=== PATIENT | female | born 1970 | race Caucasian/White ===

== ENCOUNTER 2024-10-11 08:50 | Outpatient (AMB) | payer MEDICARE, SELFPAY ==
--- NOTE | 2024-10-11 08:55 | HO.SPINEOV ---
Vital Signs 10/11/24 09:04 Height 5 ft 7 in Weight 155 lb BMI 24.3 Intake Visit Reasons: left SI pain Intake Note: Ms. Garcia is here today c/o Left sided SI Pain that radiates down to the left leg. 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 She is a very nice 54-year-old female presents for evaluation of pain over the SI joint region which has been going on for a year or more. She has a history of a bony lesion on the left side of her pelvis that was treated with bone cement in 2019, that seemed to help pain in the left side of the pelvis quite a bit. The pain that started a year ago his distinctly different from that pain, localizes itself well over the SI joint area. She was seeing her chiropractor who was working on her and he recommended she see someone else because he did not feel as though this treatments were continuing to see improvement. The pain does bother her when she is standing for any length of time, sitting for any length of time, as well as at night when she is trying to sleep. The patient has a number of different painful conditions that limit her sleeping, but she does notice that the SI joint pain disturbs her enough that it will wake her up, sometimes she has to get up and move around. She has tried an SI joint belt. It works but it is somewhat cumbersome. She has tried ibuprofen and that does not really help much at all. No dedicated physical therapy yet. She did undergo an SI joint injection at your office. She reported about 40% improvement in the pain for few weeks and then the symptoms came back. She is going to schedule an upcoming injection sometime soon to repeat this. She has evaluated by another office for possible SI joint fusion but given the bone cement location in the pelvis, they deferred. She was sent today to see us if there is an option for possibly putting in the Transfasten through a posterior approach. PMH: History of breast cancer, status post mastectomy, with 2 subsequent surgeries on her breast due to a failed reconstructive surgery. She also had adrenal cancer in 2022 with resection of the adrenal lesion in his in remission. 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 She has severe arthritis on her great toe. Status post hysterectomy, carpal tunnel and a urethral widening. Social hx: She has not smoke, drink or use any recreational drugs, she is a part-time online teacher. Medications: Exemestane, Veozah, monthly Lupron injections, valacyclovir, lorazepam and she is on a temporary prednisone taper for arthritis in her left toe. Allergies: Gabapentin, indomethacin and duloxetine Physical exam: Awake alert oriented, uncomfortable standing up, pain with walking in the hallway over the SI joint area. Positive finger Valery sign, positive NATALIE testing on the left side. Localize compression of the pelvis laterally did not generate any significant pain. Strength and reflexes are normal. Imaging review: There is pelvic MRI and abdominal CT showing the above-mentioned bone cement starting high on the iliac crest tracking superiorly and laterally. SI joint anatomy itself looks unremarkable. Impression: 54-year-old female with left SI joint pain, did have a 40% pain improvement response to your injection. She has been turned down from another facility for SI joint fusion because of bone cement in the iliac crest which would limit the lateral approach. The patient is anatomically a bit more of a challenge because of the bone cement. I am going to review the images with Dr. Mariee, see if he thinks there is enough of a track going down distally in the joint where there is less of a chance of running into the cement. She has had the pain for the last year and has trialed conservative management as above. As you know, typically before considering fusion, Dr. Mariee likes to see to serial injections yielding significant improvement in the pain. As we also note, getting this approved through her insurance, they will also like to see multiple injections with marked improvement in the symptoms. The patient is going to contact your office about a follow up injection, and I will call the patient once I have a chance to review everything with Dr. Mariee. Thank you for allowing us to care for your patient. The total time spent with this visit with this patient was 45 minutes reviewing history, physical exam, pelvic imaging review, and implementation of treatment plan or further diagnostic testing Rik Mariee MD,PhD [facility] Coding Level of Care Code New Pt Level 4 (34737) Diagnoses Chronic SI joint pain M53.3; G89.29
[2024-10-11 09:04] VITALS: BMI 24.3
--- OUTSIDE RECORDS SUMMARY | 2024-10-11 09:07 | XMS_ITS | Patient Health Record ---
Author Organization [facility] Address [address] [place] [address] Care Team Providers Care Wood Inspector Name Role Phone Antonella Antoine Primary Care Provider Danielle Garcia Unavailable [phone] Allergies Allergen (clinical drug ingredient) Drug/Non Drug Allergy documented on EMR Reaction Allergy Type Onset Date Status valacyclovir valACYclovir facial and tongue swelling Drug Allergy Active Reason For Referral No Information Medications Medication SIG (Take, Route, Fr equency, Duration) Notes Start Date End Date Status predniSONE 5 MG 1 tablet 4 times a d ay for 3 days, 1 tablet 3 times a day for 3 days, 1 tablet 2 times a day for 3 days, 1 tablet once a day for 3 days Orally; Duration: 12 days 09/23/2024 Active Veozah 45 MG 1 tablet Orally Once a day Active Lupron Active valACYclovir HCl 500 MG 1 tablet Orally Once a day Active Exemestane 25 MG 1 tablet with a meal Orally Once a day Active Immunizations Vaccine Route Administration Date Status Comme nts Influenza Unknown 01/16/2024 Administered Social History Tobacco Use: Social History Observation Description Date Details (start date - stop date) Never Smoker NA - NA Tobacco use other than smoking: Question Answer Notes Are you an other tobacco user? No Tobacco Control (Standard) Question Answer Notes Tobacco use: Nonsmoker Additional Findings: Tobacco non-user Current no nsmoker AUDIT-C (Standard) Question Answer Notes Did you have a drink contain ing alcohol in the past year? Yes How often did you have a dri nk containing alcohol in the past year? Declined to specify (0 point) How many drinks did you have on a typical day when you were drinking in the past year? Declined to specify (0 point) How often did you have six o r more drinks on one occasion in the past year? Declined to specify (0 point) Points 0 Interpretation Negative Problems Problem Type SNOMED Code ICD Code Onset Dates Problem Status W/U Status Risk Notes Problem Acquired hallux rigidus (4110364) Hallux rigidus, left foot (M20.22) Active confirmed Problem Acquired hallux valgus (39075384) Hallux valgus (acquired), left foot (M20.12) Active confirmed Problem Acquired hallux rigidus (0048402) Hallux rigidus, right foot (M20.21) Active confirmed Vital Signs Blood pressure diastolic 80 mm Hg 09/23/2024 Height 5ft 7in in 09/23/2024 Blood pressure systolic 120 mm Hg 09/23/2024 Weight 154 lbs 09/23/2024 BMI 24.12 kg/m2 09/23/2024 Encounters Encounter Location Date Provider Diagnosis [facility] [address] [address] 09/23/2024 Danielle San Pain in left foot M79.672 ; Pain in left ankle and joints of left foot M25.572 ; Bursitis of left foot M77.52 ; Hallux valgus (acquired), left foot M20.12 ; Hallux rigidus, left foot M20.22 ; Hallux rigidus, right foot M20.21 and 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 [facility] [address] [address] 09/24/2024 Danielle San Assessments Encounter Date Diagnosis (ICD Code) Assessment Notes Treatment Notes Treatment Clinical Notes Section Notes 09/23/2024 Pain in left ankle and joints of left foot (ICD-10 - M25.572) 09/23/2024 Pain in left foot (ICD-10 - M79.672) 09/23/2024 Bursitis of left foot (ICD-10 - M77.52) 09/23/2024 Hallux valgus (acquired), left foot (ICD-10 - M20.12) 09/23/2024 Hallux rigidus, left foot (ICD-10 - M20.22) 09/23/2024 Hallux rigidus, right foot (ICD-10 - M20.21) 09/23/2024 Osteoarthritis of left midfoot (ICD-10 - M19.072) Plan Of Treatment Pending Test Test Name Order Date X ray : Foot, left 3V 09/23/2024 Next Appt Details Provider Name:Danielle avila, 11/06/2024 09:00:00 AM, [address] [place], [address], Insurance Providers Payer Name Payer Address Payer Phone Subscriber Number Group Number Insured Name Patient Relationship to Insured Coverage Start Date Coverage End Date [facility] [employer] Claims [address] [place] [id number] Yenny Garcia Self - patient is the insured Medical (General) History Medical History History ICD Code Anemia Anxiety Arthritis Back,Hip,and Knee pain Broken bones Cancer covid-19 Depression Headaches/Migraines Neuropathy sinusitis Chicken pox Fibrous Dysplasia of bone Surgical History Surgery Date(Month/Year) right mastectomy 08/07 Adrenalectomy 12/07 pelvic Cementoplasty 07/2018 hysterectomy 06/2019 lumpectomy 07/2012 carpal tunnel surgery- right wrist 09/04 23 Urethral surgery 1971 capsulectomy 08/2024
== END 2024-10-11 09:49 | disposition home or self-care (01) ==
LOC: HO.HNS 08:51
PROVIDERS: PCP Nurse Practitioner Family; Referring Provider Physical Medicine & Rehabilitation; Visit Provider Physician Assistant
DX: M53.3 Sacrococcygeal disorders, not elsewhere classified (principal); G89.29 Other chronic pain
CPT/HCPCS: 99204

== ENCOUNTER → 2024-10-11 08:50 | Outpatient (BNVA) | payer MEDICARE, SELFPAY | PROVIDERS: PCP Nurse Practitioner Family; Referring Provider Physical Medicine & Rehabilitation; Visit Provider Physician Assistant | DX: M53.3 Sacrococcygeal disorders, not elsewhere classified (principal); G89.29 Other chronic pain | CPT/HCPCS: 99202 ==